=== PATIENT | male | born 1990 | race Hispanic/Latino ===

== ENCOUNTER 2019-12-22 16:03 | Emergency (ER) | payer OTHER ==
[2019-12-22] MEDS ORDERED: PREDNISONE20 MG PO (16:44)
[2019-12-22] MEDS ORDERED: VALACYCLOVIR HCL1 GM PO (16:44)
[2019-12-22 16:48] VITALS: BP 121/63
== END 2019-12-22 16:57 | disposition home or self-care (01) | DRG 74 ==
LOC: ED 16:03
DX: G51.0 Bell's palsy (principal)